=== PATIENT | female | born 1995 | race Two or more races ===

== ENCOUNTER 2022-02-27 14:18 | Emergency (ER) | payer OTHER ==
[~2022-02-27] VITALS: Ht 154.9 cm; Wt 68.1 kg
[2022-02-27] MEDS ORDERED: DICL500C76 PO (16:35)
[2022-02-27 18:13] VITALS: BP 134/79
== END 2022-02-27 18:15 | disposition home or self-care (01) ==
LOC: ER 14:18
DX: N61.0 Mastitis without abscess (principal)